=== PATIENT | male | born 1955 | race Caucasian/White ===

== ENCOUNTER → 2022-11-06 | Outpatient (CLI) | payer MEDICARE ==
--- NOTE | 2022-11-06 10:51 | CA ---
Exercise Nuclear Stress Test Report Name: Terrence Ravi Exam Date: 11/06/2022 09:51 Exam Location: [place] Stress Ht (in): 70 Wt (lb): 237 BSA: 2.24 Ordering Phys: Alex Villafana DO Referring Phys: ALEX VILLAFANA,, Technologist: Silvestre Sheriff Age: 67 Gender: M : 1955 Procedure CPT: Indications: i10 ICD-10 Codes: Patient History: Medications: Meds past 24 hrs: Pretest Chest Pain: STRESS TEST Protocol Exercise Duration (min:sec): 06:[address] Depressions (mm): Angina Score: Berg Score: Resting HR (bpm): 72 Peak HR (bpm): 144 Resting BP (mmHg): 133 / 72 Peak BP (mmHg): / 68 MPHR: 152 Target HR: 129 % MPHR: 95 METS: 10.3 Total Dose: Peak Dose: Atropine: Double Product: BP Response: Stress Termination: Reached target heart rate Stress Symptoms: short of breath Stress Summary: ECG ANALYSIS Resting ECG: Stress ECG: CONCLUSIONS Average exercise tolerance Abnormal EKG and response to exercise with evidence of ST changes LBBB in response to exercise as well Please follow-up on the Cardiolite portion Dr. Zander Archer MD (Electronically Signed) Final Date: 06 November 2022 10:50
--- NOTE | 2022-11-06 12:45 | NM ---
EXAMINATION TYPE: NM stress cardiolite complete DATE OF EXAM: 11/06/2022 COMPARISON: NONE CLINICAL INDICATION: Male, 67 years old with history of I10; history of hypertension and hypercholest eremia and family history of heart attack TECHNIQUE: After the intravenous administration of 9.9 mCi Tc 99m Sestamibi - Rest images obtained 4 5 minutes post injection. The patient exercised using a YAIR protocol and 1 minute prior to peak e xercise was injected with 25.3 mCi Tc 99m Sestamibi - Stress images obtained 25 minutes post injectio n. FINDINGS: Targeted heart rate was achieved during performance of the study. Review of stress and rest SPECT americo ges demonstrates diminished radiotracer uptake anterior septal wall on stress and rest images consist ent with area of old infarct. Poor uptake in the inferior left ventricular wall on stress images appe ar to show some improved uptake especially mid segment on the vertical long axis views. Acute ischemi a at this level cannot be excluded. Further workup and follow-up advised. 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 There is diminished ejection fraction estimated near 34%. IMPRESSION: As above. chief ultrasound technologist to make ordering physician aware of abnormal study shortly after exam w as dictated. Perfectserve currently not available.
== END | disposition home or self-care (01) ==
LOC: RADNMMAIN 07:38
PROVIDERS: ATTEND Family Medicine
DX: I10 Essential (primary) hypertension (principal); E78.00 Pure hypercholesterolemia, unspecified; R94.31 Abnormal electrocardiogram [ECG] [EKG]; Z82.49 Family history of ischemic heart disease and other diseases of the circulatory system
CPT/HCPCS: 93017; 78452; A9500